=== PATIENT | male | born 1990 | race Two or more races ===

== ENCOUNTER 2017-06-10 13:23 | Emergency (ER) | payer SELFPAY ==
[2017-06-10 13:33] VITALS: BP 127/57
[2017-06-10] MEDS ORDERED: LIDOCAINE 1% INJ-PF (10 MG/ML) 30 ML SDV INJ ONE (13:49)
--- NOTE | 2017-06-10 13:52 | ER Document Report ---
HPI - HPI Pain Level: 4 Notes: Patient is a 27-year-old male with a history of type 2 diabetes who presents to the ED complaining of swelling and pain to the right third digit 1 week. 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 Patient states that he noticed swelling and redness to the base of his fingernail so he stuck it with a needle and was able to get pus out, but since then has had increased swelling and pain to the finger. Patient denies any drug allergies or significant medical history otherwise. Patient admits to smoking but denies IV drug use. No other concerns or complaints at this time. Denies any headache, fever, neck pain, URI , sore throat, chest pain, palpitations, syncope, cough, shortness of breath, wheeze, dyspnea, abdominal pain, nausea/vomiting/diarrhea, urinary retention, dysuria, hematuria, loss of control of bowel or bladder, numbness/tingling, muscle paralysis/weakness, or rash. - ROS Systems Reviewed and Negative: Yes All other systems reviewed and negative Past Medical History - Social History Smoking Status: Current Every Day Smoker Family History: Reviewed & Not Pertinent Vertical Provider Document - CONSTITUTIONAL Agree With Documented VS: Yes Notes: PHYSICAL EXAMINATION: GENERAL: Well-appearing, well-nourished and in no acute distress. A&Ox4. LUNGS: Breath sounds clear to auscultation bilaterally and equal. No wheezes rales or rhonchi. HEART: Regular rate and rhythm without murmurs, rubs, gallops. Musculoskeletal: Rt 3rd digit: + swelling and distal erythema/swelling around the base of the nail. + tenderness. No streaks or active purulence. LROM to passive/active. Strength 5+/5. No anterior flexor tenderness. N/V intact distal. Extremities: No cyanosis, clubbing, or edema b/l. Peripheral pulses 2+. Capillary refill less than 3 seconds. NEUROLOGICAL: Cranial nerves grossly intact. Normal speech, normal gait. Normal sensory, motor exams PSYCH: Normal mood, normal affect. SKIN: see MSK exam. - INFECTION CONTROL TRAVEL OUTSIDE OF THE [place] IN LAST 30 DAYS: No - RESPIRATORY O2 Sat by Pulse Oximetry: 97 Course - Re-evaluation Re-evalutation: 06/10/17 14:25 Patient is an afebrile, well-hydrated, 27-year-old male who presents to the ED with a paronychia with surrounding mild cellulitis of the right third digit. Vitals acceptable. PE is otherwise unremarkable for any neurovascular compromise, obvious tendon/ligament rupture, obvious fracture/dislocation, or retained foreign body. X-ray was unremarkable for any acute pathology. Incision and drainage is performed successfully without any complications. Wound dressing was placed and wound instructions reviewed. Patient to monitor symptoms closely for any worsening signs of infection. Wound culture was obtained. I will send him home with a prescription for Keflex and Bactrim to take as directed. Conservative measures otherwise for symptoms. Recheck with your PCM in 2-3 days. Return to the ED with any worsening/concerning symptoms otherwise as reviewed discharge. Patient is in agreement. - Vital Signs Vital signs: Temp Pulse Resp BP Pulse Ox 72 16 127/57 H 97 06/10/17 13:31 06/10/17 13:31 06/10/17 13:31 06/10/17 13:31 Procedures - Incision and Drainage Right 3rd digit Time completed: 14:20 Type: Simple Anesthetic type: 1% Lidocaine mL's of anesthetic: 8 Blade size: Other - 15 I&D procedure: Shurclens applied, Sterile dressing applied, Other - saline Incision Method: Incision made by scalpel Amount/type of drainage: mod purulent Notes: 06/10/17 14:20 Patient tolerated procedure well without any complications Wound dressing was placed Discharge - Discharge Clinical Impression: Paronychia Condition: Stable Disposition: HOME, SELF-CARE Instructions: Cellulitis ([facility]), Cephalexin ([facility]), Epsom Salt Soaks ([facility]), Paronychia ([facility]), Trimethoprim-Sulfa ([facility]) Additional Instructions: Keep the skin clean Wash with soap and water Tylenol/ibuprofen if needed Triple antibiotic ointment daily Take medication as directed Epsom salt soaks Monitor for any worsening symptoms Recheck with your PCM in 2-3 days Return to the ED with any worsening symptoms and/or development of fever, headache, chest pain, palpitations, syncope, shortness of breath, trouble breathing, abdominal pain, n/v/d, abscess, purulent discharge, red streaks, worsening swelling, or other worsening symptoms that are concerning to you. Prescriptions: Cephalexin Monohydrate [Keflex 500 mg Capsule] 500 mg PO BID #20 capsule Sulfamethoxazole/Trimethoprim [Bactrim Ds Tablet] 1 each PO BID #20 tablet Forms: Elevated Blood Pressure, Smoking Cessation Education Referrals: [facility] [Provider Group] - Follow up as needed
--- NOTE | 2017-06-10 14:24 | RADIOLOGY REPORT (SQ) ---
EXAM DESCRIPTION: HAND RIGHT 3 VIEWS COMPLETED DATE/TIME: 06/10/2017 2:15 pm REASON FOR STUDY: rt middle finger swelling, pain COMPARISON: None. EXAM PARAMETERS: NUMBER OF VIEWS: Three views. TECHNIQUE: AP, lateral and oblique radiographic images acquired of the right hand. LIMITATIONS: None. FINDINGS: MINERALIZATION: Normal. BONES: No acute fracture or dislocation. No worrisome bone lesions. JOINTS: No effusions. SOFT TISSUES: There is soft tissue swelling in the 3rd digit. OTHER: No other significant finding. IMPRESSION: 3rd digit soft tissue swelling with no osseous abnormality. TECHNICAL DOCUMENTATION: JOB ID: [id number] [employer]- All Rights Reserved Reading location - IP/workstation name: [email or web address]
== END 2017-06-10 14:40 | disposition home or self-care (01) ==
LOC: ER 13:23
PROC: 0H9QXZZ Drainage of Finger Nail, External Approach (ICD-10-PCS; principal; 2017-06-10)
DX: L03.011 Cellulitis of right finger (principal); M79.644 Pain in right finger(s); M79.89 Other specified soft tissue disorders; E11.9 Type 2 diabetes mellitus without complications; F17.200 Nicotine dependence, unspecified, uncomplicated
CPT/HCPCS: 99283; 87070; 87205; 87077; 73130; 10060; J3490

== ENCOUNTER 2017-09-27 15:08 | Emergency (ER) | payer SELFPAY ==
[2017-09-27] MEDS ORDERED: LIDOCAINE 1% INJ-PF (10 MG/ML) 30 ML SDV INJ ONE (16:20)
[2017-09-27] MEDS ORDERED: LIDOCAINE 4%/TETRACAINE 0.5%/EPI 0.18% 5 ML TOPICAL SOLN TOP ONE (16:28)
[2017-09-27] MEDS ORDERED: CEPHALEXIN 500 MG CAPSULE PO ONE (17:43)
[2017-09-27] MEDS ORDERED: SULFAMETHOXAZOLE/TRIMETHOPRIM 800-160 MG TABLET PO ONE (17:43)
--- NOTE | 2017-09-27 17:46 | ER Document Report ---
ED General - General Chief Complaint: Abscess Stated Complaint: SKIN PROBLEM Time Seen by Provider: 09/27/17 15:36 Mode of Arrival: Ambulatory Information source: Patient Notes: Patient presents with complaint of possible abscess to left axilla. Patient reports this has been there for 3 days and has not drained. Patient denies history of MRSA, reports history of diabetes and abscesses. Denies fevers or chills. TRAVEL OUTSIDE OF THE [place] IN LAST 30 DAYS: No - Related Data Allergies/Adverse Reactions: No Known Allergies Allergy (Unverified 06/10/17 13:24) Home Medications: Patient takes glucophage and glipizide per patient Past Medical History - General Information source: Patient - Social History Smoking Status: Current Some Day Smoker Chew tobacco use (# tins/day): No Frequency of alcohol use: Occasional Drug Abuse: None Lives with: Family Family History: Reviewed & Not Pertinent Patient has suicidal ideation: No Patient has homicidal ideation: No Endocrine Medical History: Reports: Hx Diabetes Mellitus Type 2 Renal/ Medical History: Denies: Hx Peritoneal Dialysis Review of Systems - Review of Systems Constitutional: No symptoms reported EENT: No symptoms reported Cardiovascular: No symptoms reported Respiratory: No symptoms reported Gastrointestinal: No symptoms reported Genitourinary: No symptoms reported Male Genitourinary: No symptoms reported Musculoskeletal: No symptoms reported Skin: See HPI Hematologic/Lymphatic: No symptoms reported Neurological/Psychological: No symptoms reported Physical Exam - Vital signs Vitals: Temp Pulse Resp BP Pulse Ox 97.4 F 95 16 123/70 96 09/27/17 15:14 09/27/17 15:14 09/27/17 15:14 09/27/17 15:14 09/27/17 15:14 - Notes Notes: GENERAL: Well-appearing, well-nourished and in no acute distress. HEAD: Atraumatic, normocephalic. EYES: Pupils equal round and reactive to light, extraocular movements intact, sclera anicteric, conjunctiva are normal. ENT: TMs normal, nares patent, oropharynx clear without exudates. Moist mucous membranes. NECK: Normal range of motion, supple without lymphadenopathy or JVD. LUNGS: Breath sounds clear to auscultation bilaterally and equal. No wheezes rales or rhonchi. HEART: Regular rate and rhythm without murmurs, rubs or gallops. ABDOMEN: Soft, nontender, normoactive bowel sounds. No guarding, no rebound. No masses appreciated. EXTREMITIES: Normal range of motion, no pitting or edema. No clubbing or cyanosis. NEUROLOGICAL: Cranial nerves II through XII grossly intact. Normal speech, normal gait. PSYCH: Normal mood, normal affect. SKIN: Warm, Dry, normal turgor, no rashes. Three abscesses to left axilla with fluctuance and induration. Course - Re-evaluation Re-evalutation: Abscess examined with ultrasounds prior to incision and drainage. Incision and drainage performed, see procedure notes. Patient discharged in stable condition. - Vital Signs Vital signs: Temp Pulse Resp BP Pulse Ox 97.9 F 78 16 133/57 H 97 09/27/17 17:55 09/27/17 17:55 09/27/17 17:55 09/27/17 17:55 09/27/17 17:55 Procedures - Incision and Drainage left axilla Type: Simple Anesthetic type: 1% Lidocaine Blade size: 11 I&D procedure: Betadine prep applied, Shurclens applied, Iodoform packing placed , Other Incision Method: Incision made by scalpel Discharge - Discharge Clinical Impression: Abscess Condition: Stable Disposition: HOME, SELF-CARE Additional Instructions: ABSCESS: You have an abscess (boil). This a pus-forming infection, usually due to staph. Some boils may be left to drain on their own, but most require lancing. From the time the tender lump first appears, it may be three or four days before the abscess is ready to leidy. Local heat and rest help at this stage of treatment. An antibiotic may prevent spread of the infection. Once the abscess is opened, packing may be placed into it. This is done so pus is not sealed inside by premature closure of the cavity. The packing will be removed at your follow-up visit or you may be advised to remove it yourself at home. Sometimes this packing must be replaced a few times during healing. The wound will heal with surprisingly little scar. Depending on the size and location of an abscess, healing can take one to four weeks. You may shower and wash the area around the incision site two or three times a day. Antibiotics may be prescribed, but are usually not necessary after an abscess has been drained. If you develop fever, chills, worsening pain, or increasing swelling in the area, call the doctor or return immediately. POST INCISION AND DRAINAGE: You have had an incision made to allow drainage of an abscess. The incision must remain open so that pus and debris can drain from the wound. If the abscess cavity is large, packing is placed. This keeps the tissues from collapsing and trapping pus inside, while the body shrinks the cavity. The packing may need to be replaced every day or two. The physician will instruct you on the packing. Keep a bulky dressing over the area. Replace it if it becomes saturated with blood or pus. Do not disturb the packing (if present). You may shower and cleanse the area with gentle soap and warm water two or three times a day. Local warmth may be soothing, and may promote faster healing. Return if you develop high fever or chills, or if you note spreading redness, increasing swelling, or increasing tenderness. MRSA CELLULITIS: You have an infection of your skin and underlying soft tissues called cellulitis. This is due to bacteria, which can enter through any break in the skin, or even through an irritated hair follicle. Untreated, cellulitis will usually worsen and may form an abscess which requires draining. Although many bacterial organisms can cause cellulitis and abscess formations, the most likely bacteria is Methicillin-Resistant Staph Aureus, or MRSA for short. Antibiotics are required. Usually, warm packs or warm soaks, and elevation of the infected area are recommended. You should start getting better within 24 to 36 hours. Most infections respond quickly to the right medication. Follow-up care is important, however, to check for abscess (boil) formation, unsuspected foreign body, or resistant infection. If you develop fever, chills, or if the area of infection is becoming rapidly more swollen or painful, call the doctor at once. CEPHALEXIN: The antibiotic you've been prescribed is a member of the cephalosporin class. This type of antibiotic covers a wide variety of infections, including those of the skin, lungs, and urinary tract. It's useful for staph infections. This antibiotic is slightly similar to the penicillin family. In rare cases , a person who is allergic to penicillin will also be allergic to this medication. If you have had a severe allergic reaction to penicillin, and have not taken this antibiotic since that time, notify your doctor. Antibiotics which cover many germs ("broad spectrum" antibiotics) are more likely to cause diarrhea or "yeast" infections. Women prone to vaginal yeast problems may suffer an attack after taking this antibiotic. In infants, oral thrush (white spots "stuck" on the cheek) or yeast diaper rash may result. See your doctor if these problems occur. Call at once if you develop itching, hives , shortness of breath, or lightheadedness. TRIMETHOPRIM-SULFA: You have been given a prescription for trimethoprim-sulfa (TMS, Septra, Bactrim). This is a combination antibiotic of the sulfa class, often used for urinary tract infections, middle ear infections, bronchitis, shigella intestinal infection, and Pneumocystis pneumonia. TMS is usually well-tolerated. Occasional side effects include nausea and decreased appetite. Septra is not recommended for infants less than two months of age. Do not take this medication if you have experienced severe side effects or allergy to sulfa medicine. You should stop this medicine at once and contact your physician if you develop any rash, joint pain, shortness of breath, bruising, or jaundice ( yellow color in the skin), or if you develop any other new or unusual symptoms. FOLLOW-UP CARE: Most simple abscesses will not require a follow up visit. If you had packing placed in the abscess, remove it as instructed by the physician. If you have been referred to a physician for follow-up care, call the physicians office for an appointment as you were instructed or within the next two days. If you experience worsening or a significant change in your symptoms, return to the Emergency Department at any time for re-evaluation. Please read remove the packing within 24-48 hours. You may remove this on your own or you may return here. The packing may very likely fall out on its own prior to this. Prescriptions: Cephalexin Monohydrate [Keflex 500 mg Capsule] 500 mg PO Q6H 5 Days #20 capsule Sulfamethoxazole/Trimethoprim [Bactrim Ds Tablet] 2 tab PO BID #20 tablet
[2017-09-27 17:56] VITALS: BP 133/57
== END 2017-09-27 17:56 | disposition home or self-care (01) ==
LOC: ER 15:08
PROC: 0H9CXZZ Drainage of Left Upper Arm Skin, External Approach (ICD-10-PCS; principal; 2017-09-27)
DX: L02.412 Cutaneous abscess of left axilla (principal); E11.9 Type 2 diabetes mellitus without complications; F17.200 Nicotine dependence, unspecified, uncomplicated
CPT/HCPCS: 99283; 10060; A6266; J3490 ×2

== ENCOUNTER 2017-11-22 16:09 | Emergency (ER) | payer SELFPAY ==
--- NOTE | 2017-11-22 16:32 | ER Document Report ---
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 Does not believe there is a foreign body in there. He has a history of abscesses under his left arm recently. No fever or chills. Associated Symptoms: None Exacerbated by: Movement Relieved by: Denies - ROS ROS below otherwise negative: Yes Systems Reviewed and Negative: Yes All other systems reviewed and negative Past Medical History - General Information source: Patient - Social History Smoking Status: Unknown if Ever Smoked Lives with: Family Family History: Reviewed & Not Pertinent Endocrine Medical History: Reports: Hx Diabetes Mellitus Type 2 Renal/ Medical History: Denies: Hx Peritoneal Dialysis Surgical Hx: Negative Vertical Provider Document - CONSTITUTIONAL Agree With Documented VS: Yes Exam Limitations: No Limitations - INFECTION CONTROL TRAVEL OUTSIDE OF THE [place] IN LAST 30 DAYS: No - MUSCULOSKELETAL/EXTREMETIES Musculoskeletal/Extremeties: MAEW, FROM, Tender - 9mm red tender nodule mid thenar aspect of the right palm - NEURO Level of Consciousness: Awake, Alert Motor/Sensory: No Motor Deficit, No Sensory Deficit Course - Re-evaluation Re-evalutation: 11/22/17 16:48 Bedside ultrasound shows some fluid collection the plain film x-ray does not show a foreign body.. Patient states this started like an insect bite and now it has gotten larger. 11/22/17 17:45 There is no pus when a anesthetized the area and inserted an 18-gauge needle twice into the area of suspicion only blood. I used the needle instead of incision because I was suspicious of whether it was an abscess or not. I told the patient that he needs to use warm soaks on it tomorrow and I am going to start antibiotics and since he is a type II diabetic. I will plan on on him rechecking in 48 hours sooner if worse give him a no work note. xray was negative - Vital Signs Vital signs: Temp Pulse Resp BP Pulse Ox 98.4 F 75 16 125/75 97 11/22/17 16:13 11/22/17 16:13 11/22/17 16:13 11/22/17 16:13 11/22/17 16:13 Procedures - Incision and Drainage Right Hand Time completed: 17:43 Type: Simple Anesthetic type: 1% Lidocaine mL's of anesthetic: 2 I&D procedure: Betadine prep applied, Sterile dressing applied - gauze and coban Incision Method: Incision made with needle Amount/type of drainage: blood only, no pus with 1u gauge needle twice. Hands front picture: 1 - firm red nodule 9mm Discharge - Discharge Clinical Impression: Nodule of finger of right hand Condition: Good Disposition: HOME, SELF-CARE Instructions: Cephalexin ([facility]), Trimethoprim-Sulfa ([facility]), Ibuprofen (General) ( [facility]) Additional Instructions: Warm compress Antibiotics in case this is an infection Recheck your hand in 48 hours in the emergency department sooner if worse motrin for pain and inflammation Prescriptions: Ibuprofen [Motrin 800 mg Tablet] 800 mg PO Q8HP PRN #30 tablet PRN Reason: Cephalexin Monohydrate [Keflex 500 mg Capsule] 500 mg PO QID #28 capsule Sulfamethoxazole/Trimethoprim [Sulfamethoxazole-Tmp Ds Tablet] 1 each PO BID # 14 tablet Forms: Return to Work
--- NOTE | 2017-11-22 17:21 | RADIOLOGY REPORT (SQ) ---
EXAM DESCRIPTION: HAND RIGHT 3 VIEWS COMPLETED DATE/TIME: 11/22/2017 5:01 pm REASON FOR STUDY: possible abscess COMPARISON: 06/10/2017. EXAM PARAMETERS: NUMBER OF VIEWS: Three views. TECHNIQUE: AP, lateral and oblique radiographic images acquired of the right hand. LIMITATIONS: None. FINDINGS: MINERALIZATION: Normal. BONES: No acute fracture or dislocation. No worrisome bone lesions. JOINTS: No effusions. SOFT TISSUES: No soft tissue swelling. No foreign body. OTHER: No other significant finding. IMPRESSION: NO SIGNIFICANT RADIOGRAPHIC ABNORMALITY. TECHNICAL DOCUMENTATION: JOB ID: [id number] [employer]- All Rights Reserved Reading location - IP/workstation name: [email or web address]
[2017-11-22] MEDS ORDERED: ACETAMINOPHEN 325 MG TABLET PO ONE (17:45)
[2017-11-22] MEDS ORDERED: IBUPROFEN 800 MG TABLET PO ONE (17:45)
[2017-11-22 17:53] VITALS: BP 135/83
== END 2017-11-22 17:57 | disposition home or self-care (01) ==
LOC: ER 16:09
DX: R22.31 Localized swelling, mass and lump, right upper limb (principal); E11.9 Type 2 diabetes mellitus without complications; Z87.2 Personal history of diseases of the skin and subcutaneous tissue
CPT/HCPCS: 99283

== ENCOUNTER 2018-11-05 21:13 | Emergency (ER) | payer SELFPAY ==
--- NOTE | 2018-11-06 | ER Document Report ---
Addendum entered and electronically signed by SOBEIDA ALANIZ PA-C 11/06/18 00:41: Discharge - Discharge Clinical Impression: Abscess Condition: Good Disposition: HOME, SELF-CARE Instructions: Abscess ([facility]), Post Incision and Drainage Additional Instructions: You were seen for an abscess that required drainage. Please clean this area with soap and water twice daily and apply a topical antibiotic. Dress the area after each cleaning. Please return if you develop fever, vomiting, the pain at the site worsens, you notice spreading redness from the area, or you have any other symptoms that are concerning to you. Forms: Return to Work Original Note: ED Skin Rash/Insect Bite/Abscs - General Chief Complaint: Abscess Stated Complaint: CYST ON BACK Time Seen by Provider: 11/05/18 23:46 Notes: Overall healthy 28-year-old male presents emergency department with chief complaint of a cyst on his back. Patient does have a history of abscesses that required incision and drainage in the past. He said that this started about 1 week ago and has grown and now is under a lot of pressure and is in acute pain. He denies any fevers or chills, any acute shortness of breath or chest pain, denies any neuro deficits, denies any limb paresthesias, denies IV drug use. No other complaints TRAVEL OUTSIDE OF THE [place] IN LAST 30 DAYS: No - Related Data Allergies/Adverse Reactions: No Known Allergies Allergy (Unverified 06/10/17 13:24) Past Medical History - Social History Smoking Status: Unknown if Ever Smoked Family History: Reviewed & Not Pertinent Endocrine Medical History: Reports: Hx Diabetes Mellitus Type 2 Renal/ Medical History: Denies: Hx Peritoneal Dialysis Physical Exam - Vital signs Vitals: Temp Pulse Resp BP Pulse Ox 98.9 F 84 18 120/73 94 11/05/18 21:38 11/05/18 21:38 11/05/18 21:38 11/05/18 21:38 11/05/18 21:38 - Notes Notes: PHYSICAL EXAMINATION: Reviewed vital signs and charting by RN GENERAL: Alert, interacts well. No acute distress. HEAD: Normocephalic, atraumatic. EYES: Pupils equal and round. Extraocular movements intact. ENT: Oral mucosa moist, tongue midline. NECK: Full range of motion. Trachea midline. EXTREMITIES: Moves all 4 extremities spontaneously. No edema, No cyanosis. PSYCH: Normal affect, normal mood. SKIN: Warm, dry, normal turgor. Abscess in the lower thoracic region on the right side not actively oozing, ultrasound placed over it and there was a fluid- filled pocket amenable to incision and drainage. Course - Re-evaluation Re-evalutation: 11/06/18 00:37 Incision and drainage performed after anesthetizing patient with lidocaine 1% without epinephrine. Patient tolerated procedure well. No need for antibiotic's at this time as this is just a simple abscess. - Vital Signs Vital signs: Temp Pulse Resp BP Pulse Ox 98.9 F 84 18 120/73 94 11/05/18 21:38 11/05/18 21:38 11/05/18 21:38 11/05/18 21:38 11/05/18 21:38 Procedures - Incision and Drainage Right Back Type: Simple Anesthetic type: 1% Lidocaine Blade size: 11 I&D procedure: Shurclens applied Incision Method: Incision made by scalpel Discharge - Discharge Clinical Impression: Abscess Condition: Good Disposition: HOME, SELF-CARE Instructions: Abscess ([facility]), Post Incision and Drainage Additional Instructions: You were seen for an abscess that required drainage. Please clean this area with soap and water twice daily and apply a topical antibiotic. Dress the area after each cleaning. Please return if you develop fever, vomiting, the pain at the site worsens, you notice spreading redness from the area, or you have any other symptoms that are concerning to you.
[2018-11-06] MEDS ORDERED: HYDROCODONE/ACETAMINOPHEN 5-325 MG (6 TAB/ER DISP) PO PRN (00:39)
[2018-11-06 00:51] VITALS: BP 119/71
== END 2018-11-06 01:27 | disposition home or self-care (01) ==
LOC: ER 21:13
DX: L02.212 Cutaneous abscess of back [any part, except buttock and flank] (principal); E11.9 Type 2 diabetes mellitus without complications
CPT/HCPCS: 99282

== ENCOUNTER 2019-01-22 17:16 | Emergency (ER) | payer SELFPAY ==
[2019-01-22] MEDS ORDERED: NORMAL SALINE 1000 ML 1,000 ML IV ONE ×2 (17:42→19:25)
--- NOTE | 2019-01-22 17:44 | ER Document Report ---
ED Medical Screen (RME) - General Chief Complaint: Abscess Stated Complaint: POSSIBLE ABSCESS Time Seen by Provider: 01/22/19 17:34 Notes: Patient is a 29-year-old diabetic who has been off his medications who presents to the emergency department with a possible abscess to his left lower back. Patient had noticed that he had a bump to the area about a week ago. Patient admits to having some cold chills. Patient states that he has not established a primary care provider here in [place], therefore he has been off his medications. Exam: Abscess noted to left lower back. Accu-Chek reading high. Patient will be given IV fluids and basic labs will be drawn. I have greeted and performed a rapid initial assessment of this patient. A comprehensive ED assessment and evaluation of the patient, analysis of test results and completion of medical decision making process will be conducted by an additional ED providers. TRAVEL OUTSIDE OF THE [place] IN LAST 30 DAYS: No - Related Data Allergies/Adverse Reactions: No Known Allergies Allergy (Unverified 06/10/17 13:24) Past Medical History - Social History Chew tobacco use (# tins/day): No Frequency of alcohol use: Social Drug Abuse: None Endocrine Medical History: Reports: Hx Diabetes Mellitus Type 2 Renal/ Medical History: Denies: Hx Peritoneal Dialysis Physical Exam - Vital signs Vitals: Temp Pulse Resp BP Pulse Ox 98.3 F 86 18 134/73 H 98 01/22/19 17:23 01/22/19 17:23 01/22/19 17:23 01/22/19 17:23 01/22/19 17:23 Course - Vital Signs Vital signs: Temp Pulse Resp BP Pulse Ox 98.3 F 86 18 134/73 H 98 01/22/19 17:23 01/22/19 17:23 01/22/19 17:23 01/22/19 17:23 01/22/19 17:23
[2019-01-22 18:19] LABS: APPEARANCE,URINE CLEAR; BILIRUBIN,URINE NEGATIVE (NEGATIVE); COLOR,URINE STRAW; KETONES,URINE NEGATIVE (NEGATIVE); LEUKOCYTE ESTERASE,URINE NEGATIVE (NEGATIVE); NITRITE,URINE NEGATIVE (NEGATIVE); PROTEIN,URINE NEGATIVE (NEGATIVE); URINE SPECIFIC GRAVITY 1.005; UROBILINOGEN,URINE NEGATIVE mg/dL (<2.0)
[2019-01-22 18:21] LABS: GLUCOSE, URINE >=1000 mg/dL (NEGATIVE)
[2019-01-22 18:22] LABS: ABSOLUTE EOSINOPHILS # (AUTO) 0.1 10^3/uL (0.0-0.6); ABSOLUTE LYMPHOCYTES (AUTO) 1.3 10^3/uL (0.5-4.7); ABSOLUTE MONOCYTES (AUTO) 0.5 10^3/uL (0.1-1.4); TOTAL CELLS COUNTED % (AUTO) 100 %
[2019-01-22 18:26] LABS: BASOPHILS % (AUTO) 1.2 % (0-2); EOSINOPHILS % (AUTO) 3.1 % (0-6); HEMATOCRIT 44.8 % (37.9-51.0); HEMOGLOBIN 15.1 g/dL (13.5-17.0); LYMPHOCYTES % (AUTO) 32.2 % (13-45); MEAN CORPUSCULAR HEMOGLOBIN 32.7 pg (27.0-33.4); MEAN CORPUSCULAR HGB CONC 33.7 g/dL (32.0-36.0); MEAN CORPUSCULAR VOLUME 97 fl (80-97); MONOCYTES % (AUTO) 13.5 % (3-13); PLATELET COUNT 256 10^3/uL (150-450); RED BLOOD COUNT 4.61 10^6/uL (4.35-5.55); RED CELL DISTRIBUTION WIDTH 12.8 % (11.5-14.0)
[2019-01-22 18:38] LABS: VENOUS BLOOD BASE EXCESS 2.9 mmol/L; VENOUS BLOOD HCO3 29.8 mmol/L (20-32); VENOUS BLOOD PCO2 53.9 mmHg (35-63); VENOUS BLOOD PH 7.36 (7.30-7.42)
[2019-01-22 18:52] LABS: ALBUMIN 4.2 g/dL (3.5-5.0); ALKALINE PHOSPHATASE 115 U/L (38-126); ANION GAP 14 (5-19); ASPARTATE AMINO TRANSFERASE 17 U/L (17-59); BILIRUBIN,DIRECT 0.2 mg/dL (0.0-0.4); BILIRUBIN,TOTAL 1.4 mg/dL (0.2-1.3); BLOOD UREA NITROGEN 10 mg/dL (7-20); CALCIUM 9.2 mg/dL (8.4-10.2); CARBON DIOXIDE 25 mmol/L (22-30); CHLORIDE 85 mmol/L (98-107); POTASSIUM 4.8 mmol/L (3.6-5.0); TOTAL PROTEIN 7.1 g/dL (6.3-8.2)
[2019-01-22 19:01] LABS: GLUCOSE 901 mg/dL (75-110)
[2019-01-22] MEDS ORDERED: NORMAL SALINE 100 ML with INSULIN REGULAR, HUMAN 100 UNIT IV PRN ×2 (20:36)
[2019-01-22] MEDS ORDERED: DIPH/PERTUSS(ACELL)/TETANUS VAC/PF 0.5 ML SYR (>=10YO) IM ONE (20:54)
[2019-01-22] MEDS ORDERED: INSULIN REG, HUMAN 100 UNIT/ML 3 ML VIAL (PYX) SUBCUT ONE (20:58)
[2019-01-22] MEDS ORDERED: SULFAMETHOXAZOLE/TRIMETHOPRIM 800-160 MG TABLET PO ONE (20:58)
[2019-01-22] MEDS ORDERED: LIDOCAINE 1% INJ-PF (10 MG/ML) 30 ML SDV INJ ONE (21:05)
[2019-01-22] MEDS ORDERED: HYDROCODONE/ACETAMINOPHEN 5-325 MG TABLET PO ONE (22:40)
--- NOTE | 2019-01-23 00:08 | ER Document Report ---
ED General - General Chief Complaint: Abscess Stated Complaint: POSSIBLE ABSCESS Time Seen by Provider: 01/22/19 17:34 TRAVEL OUTSIDE OF THE [place] IN LAST 30 DAYS: No - Related Data Allergies/Adverse Reactions: No Known Allergies Allergy (Unverified 06/10/17 13:24) Past Medical History - Social History Smoking Status: Current Every Day Smoker Chew tobacco use (# tins/day): No Frequency of alcohol use: Social Drug Abuse: None Family History: Reviewed & Not Pertinent Patient has suicidal ideation: No Patient has homicidal ideation: No Endocrine Medical History: Reports: Hx Diabetes Mellitus Type 2 Renal/ Medical History: Denies: Hx Peritoneal Dialysis Physical Exam - Vital signs Vitals: Temp Pulse Resp BP Pulse Ox 98.3 F 86 18 134/73 H 98 01/22/19 17:23 01/22/19 17:23 01/22/19 17:23 01/22/19 17:23 01/22/19 17:23 - Notes Notes: Patient presents with 2 complaints #1 is a abscess on his left flank is been on for about a week. Denies any trauma or bite wounds. He has not been scratching it is been no drainage. He has had several of these in the past had to be drained. Is also complaining of a rash in his perineal area about a month. It is scratchy in nature. No contact history obtainable. Any fevers but he has been thirsty and has had frequent urination. Denies any nausea vomiting abdominal pain chest pain or shortness of breath History significant for diabetes he was on metformin is been off for several months social history was listed on triage note. Allergies are negative. Immunizations are unknown Review of systems all systems were reviewed and acutely negative except as in HPI DM PHYSICAL EXAMINATION: Signs noted he is in no acute distress triage note revi ewed GENERAL: Well-appearing, well-nourished and in no acute distress. HEAD: Atraumatic, normocephalic. EYES: Pupils equal round and reactive to light, extraocular movements intact, sclera anicteric, conjunctiva are normal. ENT: nares patent, oropharynx clear without exudates. Moist mucous membranes. NECK: Normal range of motion, supple without lymphadenopathy LUNGS: Breath sounds clear to auscultation bilaterally and equal. No wheezes rales or rhonchi. HEART: Regular rate and rhythm without murmurs ABDOMEN: Soft, nontender, normoactive bowel sounds. Back is nontender small fluctuant area on the left flank no real surrounding redness EXTREMITIES: Normal range of motion, no pitting or edema. No cyanosis. NEUROLOGICAL: No focal neurological deficits. Moves all extremities spontaneously and on command. PSYCH: Normal mood, normal affect. SKIN: Warm, Dry, normal turgor, no rashes or lesions noted. Course - Re-evaluation Re-evalutation: 01/23/19 00:06 ED patient is remained stable he is given a tetanus shot as well as Bactrim. He was given 2 L of normal saline sugar to around 450 01/23/19 00:08 Medical decision making patient with a history of diabetes presents with an abscess as well as markedly elevated glucose. No anion gap his glucose has improved however I felt the patient would need admission based on the fact that sugar was 900. I had a lengthy discussion with Dr. Cohn the hospitalist laboratory studies fact that his glucose was 900 however he felt that since the sugar has come down that he had no anion gap to be discharged home he did recommend another liter of fluid even though the patient had already received 2 L plan at this point we will discharge the patient home. He will be placed on metformin and Bactrim call for the pain. Also be treated with Diflucan for his rash. Emphasized need for him to get his medications filled. One is a side effect of medication we will bring him back here 2 days to recheck his sugar and remove the packing develops fevers greater than 101 or persistent vomiting. Patient expresses understanding - Vital Signs Vital signs: Temp Pulse Resp BP Pulse Ox 98.3 F 86 18 134/73 H 98 01/22/19 17:23 01/22/19 17:23 01/22/19 17:23 01/22/19 17:23 01/22/19 17:23 - Laboratory Result Diagrams: 01/22/19 17:52 01/22/19 17:52 Laboratory results interpreted by me: 01/22/19 01/22/19 01/22/19 17:52 17:52 17:52 [place] % (Auto) 13.5 H Sodium 123.8 L Chloride 85 L Creatinine 0.48 L Glucose 901 H* POC Glucose Total Bilirubin 1.4 H Urine Glucose (UA) >=1000 H 01/22/19 01/22/19 20:51 23:14 [place] % (Auto) Sodium Chloride Creatinine Glucose POC Glucose 540 H* 408 H* Total Bilirubin Urine Glucose (UA) Procedures - Incision and Drainage Left Back Type: Complex Anesthetic type: 1% Lidocaine Blade size: 11 Needle Size: Other I&D procedure: Betadine prep applied Incision Method: Incision made by scalpel Notes: 01/23/19 00:07 5 cc 01/23/19 00:07 5 cc of purulent wound. Loculations were broken up. Abated with normal saline. Xeroform gauze. Patient tolerated procedure well. Sent wound culture Critical Care Note - Critical Care Note Total time excluding time spent on procedures (mins): 35 Discharge - Discharge Clinical Impression: Abscess, Candidiasis Disposition: HOME, SELF-CARE Additional Instructions: Return to the ED in 2 days for recheck Please review the discharge instructions Is very important that you get the medications filled tomorrow Return to the ED in 2 days for recheck The pain medications may cause drowsiness do not take Tylenol with this Avoid scratching the area of rash. Try to keep the area of rash as dry as possible Take 1 Benadryl 4 times a day to help with the itching Follow-up in the clinic in 1 week to recheck your sugar Prescriptions: Sulfamethoxazole/Trimethoprim [Bactrim Ds Tablet] 1 tab PO BID #10 tablet Fluconazole [Diflucan] 150 mg PO DAILY #3 tablet Metformin HCl [Glucophage 500 mg Tablet] 1,000 mg PO BID #60 tablet Hydrocodone/Acetaminophen [[place]vin 5-325 mg Tablet] 1 tab PO Q6 #12 tablet
[2019-01-23 00:34] VITALS: BP 113/64
== END 2019-01-23 00:32 | disposition home or self-care (01) ==
LOC: ER 17:16
DX: L02.211 Cutaneous abscess of abdominal wall (principal); B37.9 Candidiasis, unspecified; R21 Rash and other nonspecific skin eruption; E11.65 Type 2 diabetes mellitus with hyperglycemia; F17.200 Nicotine dependence, unspecified, uncomplicated
CPT/HCPCS: 99285; 96360; 96361; 90471; 36415; 87070; 87205; 82962; 85025; 87075; 87077; 80053; 81001; 82803; 90715; 10060; A6266; J3490; J1815; J7030; 87186

== ENCOUNTER 2019-01-24 17:22 | Emergency (ER) | payer SELFPAY ==
--- NOTE | 2019-01-24 18:03 | ER Document Report ---
ED Medical Screen (RME) - General Chief Complaint: Wound Recheck Stated Complaint: WOUND CHECK Time Seen by Provider: 01/24/19 18:00 Mode of Arrival: Ambulatory Information source: Patient Notes: 29-year-old male presents emergency department with request for wound recheck reports he had an I&D 2 days ago and that is pack. Also reports that they told him to have his sugar rechecked because it was over thousand last time he was here. Patient reports he feels better but is on pain medications. Reports he is taking his antibiotics as prescribed. Denies fever I have greeted and performed a rapid initial assessment of this patient. A comprehensive ED assessment and evaluation of the patient, analysis of test results and completion of the medical decision making process will be conducted by additional ED providers. Dictation of this chart was performed using voice recognition software; therefore, there may be some unintended grammatical errors. TRAVEL OUTSIDE OF THE [place] IN LAST 30 DAYS: No - Related Data Allergies/Adverse Reactions: No Known Allergies Allergy (Unverified 06/10/17 13:24) Past Medical History Endocrine Medical History: Reports: Hx Diabetes Mellitus Type 2 Renal/ Medical History: Denies: Hx Peritoneal Dialysis Physical Exam - Vital signs Vitals: Temp Pulse Resp BP Pulse Ox 98.4 F 84 16 120/74 99 01/24/19 17:47 01/24/19 17:47 01/24/19 17:47 01/24/19 17:47 01/24/19 17:47 Course - Vital Signs Vital signs: Temp Pulse Resp BP Pulse Ox 98.4 F 84 16 120/74 99 01/24/19 17:47 01/24/19 17:47 01/24/19 17:47 01/24/19 17:47 01/24/19 17:47
[2019-01-24] MEDS: NORMAL SALINE 1000 ML 1,000 ML IV PRN ×2 (19:38→19:41)
--- NOTE | 2019-01-24 19:53 | ER Document Report ---
ED General - General Mode of Arrival: Ambulatory Information source: Patient TRAVEL OUTSIDE OF THE [place] IN LAST 30 DAYS: No - HPI Onset: Other - See HPI Onset/Duration: Better - States she has no pain Quality of pain: No pain Severity: None Pain Level: Denies Associated symptoms: Other - Recheck Accu-Chek and recheck wound Exacerbated by: Denies Relieved by: Denies Similar symptoms previously: Yes Recently seen / treated by doctor: Yes <ASHLEY MEDEL - Last Filed: 01/24/19 21:48> <CAROLINA NIXON IV - Last Filed: 01/24/19 23:07> - General Chief Complaint: Wound Recheck Stated Complaint: WOUND CHECK Time Seen by Provider: 01/24/19 18:00 Notes: 29-year-old male presented to ED for request for wound recheck. He states he had a INR done 2 days ago and it was packed and needed the packing removed. He was also checked for his blood sugar and it was up to 900 and his last visit 2 days ago they gave him fluids since he home started him on metformin. He states he took 2 pills a day twice a day and he has had 2 pills this morning and he needs 2 more tonight. He states nobody has checked his Accu-Chek before I saw him. I saw him about 1830. I did check his Accu-Chek it was high so we sent to chemistry. His chemistry came back 6 7 so he got started on 2 L of normal saline. Will check Accu-Chek after the saline. (ASHLEY MEDEL) - Related Data Allergies/Adverse Reactions: No Known Allergies Allergy (Unverified 06/10/17 13:24) Past Medical History - General Information source: Patient - Social History Smoking Status: Never Smoker Chew tobacco use (# tins/day): No Frequency of alcohol use: None Drug Abuse: None Lives with: Family Family History: Reviewed & Not Pertinent Patient has suicidal ideation: No Patient has homicidal ideation: No - Past Medical History Cardiac Medical History: Reports: None Pulmonary Medical History: Reports: None EENT Medical History: Reports: None Neurological Medical History: Reports: None Endocrine Medical History: Reports: Hx Diabetes Mellitus Type 2 Renal/ Medical History: Reports: None Malignancy Medical History: Reports None GI Medical History: Reports: None Musculoskeletal Medical History: Reports None Skin Medical History: Reports None Psychiatric Medical History: Reports: None Traumatic Medical History: Reports: None Infectious Medical History: Reports: None Surgical Hx: Negative Past Surgical History: Reports: None - Immunizations Immunizations up to date: Yes <ASHLEY MEDEL - Last Filed: 01/24/19 21:48> Review of Systems - Review of Systems Constitutional: No symptoms reported EENT: No symptoms reported Cardiovascular: No symptoms reported Respiratory: No symptoms reported Gastrointestinal: No symptoms reported Genitourinary: No symptoms reported Male Genitourinary: No symptoms reported Musculoskeletal: No symptoms reported Skin: Other - Wound recheck Hematologic/Lymphatic: No symptoms reported Neurological/Psychological: No symptoms reported -: Yes All other systems reviewed and negative <ASHLEY MEDEL - Last Filed: 01/24/19 21:48> Physical Exam - Vital signs Interpretation: Normal - General General appearance: Appears well, Alert - HEENT Head: Normocephalic, Atraumatic Eyes: Normal Pupils: PERRL - Respiratory Respiratory status: No respiratory distress Chest status: Nontender Breath sounds: Normal Chest palpation: Normal - Cardiovascular Rhythm: Regular Heart sounds: Normal auscultation Murmur: No - Abdominal Inspection: Normal Distension: No distension Bowel sounds: Normal Tenderness: Nontender Organomegaly: No organomegaly - Back Back: Normal, Nontender - Extremities General upper extremity: Normal inspection, Nontender, Normal color, Normal ROM, Normal temperature General lower extremity: Normal inspection, Nontender, Normal color, Normal ROM, Normal temperature, Normal weight bearing. No: Aylin's sign - Neurological Neuro grossly intact: Yes Cognition: Normal Orientation: AAOx4 Gage Coma Scale Eye Opening: Spontaneous Gage Coma Scale Verbal: Oriented [place] Coma Scale Motor: Obeys Commands Sak[place] Coma Scale Total: 15 Speech: Normal Motor strength normal: LUE, RUE, LLE, RLE Sensory: Normal - Psychological Associated symptoms: Normal affect, Normal mood - Skin Skin Temperature: Warm Skin Moisture: Dry Skin Color: Normal Skin irregularity: Abscess - Recheck need to remove packing then irrigated with saline and redressed Location of irregularity: Other - Left upper buttocks Irregularity with: Tenderness <ASHLEY MEDEL - Last Filed: 01/24/19 21:48> - Vital signs Vitals: Temp Pulse Resp BP Pulse Ox 98.4 F 84 16 120/74 99 01/24/19 17:47 01/24/19 17:47 01/24/19 17:47 01/24/19 17:47 01/24/19 17:47 Course - Laboratory Result Diagrams: 01/24/19 19:28 <ASHLEY MEDEL - Last Filed: 01/24/19 21:48> - Laboratory Result Diagrams: 01/24/19 19:28 <CAROLINA NIXON IV - Last Filed: 01/24/19 23:07> - Re-evaluation Re-evalutation: 01/24/19 20:49 Accu-Chek was high so chemistry was done sugar was 667, 2 L of normal saline have been given Accu-Chek is now over 400. Will consult MD about disposition. 01/24/19 21:[address] Woods he recommended giving patient another liter of fluids and 5 units of regular insulin cutaneous. He states the sugar will need to be rechecked and needs to be under 300. 01/24/19 21:48 Accu-Chek is now [address] Woods he stated that the sugar will continue to go ahead down to go ahead and let him go home but to reiterate the diet. I have gone into spoken with the patient and he is ready to go home. We will give him his metformin dose before discharge. (ASHLEY MEDEL) - Vital Signs Vital signs: Temp Pulse Resp BP Pulse Ox 98.4 F 84 16 120/74 99 01/24/19 17:47 01/24/19 17:47 01/24/19 17:47 01/24/19 17:47 01/24/19 17:47 - Laboratory Laboratory results interpreted by me: 01/24/19 01/24/19 01/24/19 19:28 20:29 21:45 Sodium 132.3 L Chloride 91 L Glucose 667 H* POC Glucose 447 H* 384 H Total Bilirubin 1.4 H AST 16 L Discharge <ASHLEY MEDEL - Last Filed: 01/24/19 21:48> <CAROLINA NIXON IV - Last Filed: 01/24/19 23:07> - Discharge Clinical Impression: Encounter for wound re-check Diabetes type 2, uncontrolled Qualifiers: Glycemic state: with hyperglycemia Qualified Code(s): E11.65 - Type 2 diabetes mellitus with hyperglycemia Condition: Stable Disposition: HOME, SELF-CARE Instructions: Family Physicians / Practices Additional Instructions: Diabetes You have an abnormally high blood sugar, suspicious for diabetes. Not all high blood sugar requires long-term treatment. High blood sugar can be due to medications, , or the stress of illness. (These cases are "borderline diabetes.") If the doctor feels your high blood sugar might get better with time, you may not require treatment now. You will be scheduled for further evaluation. It's very important that you follow through. Uncontrolled high blood sugar leads to early heart disease, strokes, nerve damage, eye damage, and kidney damage. All diabetics should follow a diet designed to control the blood sugar. Overweight diabetics should exercise regularly and lose weight. If this is not sufficient to control the blood sugar, pills or insulin shots are necessary. Younger people who develop diabetes almost always require insulin daily. Home testing of blood sugars or urine sugar is required. Diabetic teaching is available to help you figure insulin doses and monitor the blood sugar. Call the physician if there is faintness, excess sleepiness, or very rapid breathing. If hypoglycemia (LOW blood sugar) develops, symptoms are shakiness, weakness, sweating, and confusion. In this case, you should eat or drink something with sugar at once. You were here for recheck of your abscess. I have removed the packing and redressed the wound. You need to recheck this abscess and redress that 3 times a day. Please clean with some fresh soap and water each time and rinse well with clear water. Your sugar was high today. You have been treated with 5 units of insulin as well as 3 L of fluids to bring your sugar down it was over 600 today. Please follow the diabetic diet as you were discussed before. Decrease the sugars sugar drinks starches that you eat these all make your sugar go high. You need to follow-up with a dietitian and a retail service specialist to get your diabetes under control. FOLLOW-UP CARE: If you have been referred to a physician for follow-up care, call the [facility] office for an appointment as you were instructed or within the next two days. If you experience worsening or a significant change in your symptoms, notify the physician immediately or return to the Emergency Department at any time for re-evaluation.
[2019-01-24 20:00] LABS: ALBUMIN 4.4 g/dL (3.5-5.0); ALKALINE PHOSPHATASE 117 U/L (38-126); ANION GAP 13 (5-19); ASPARTATE AMINO TRANSFERASE 16 U/L (17-59); BILIRUBIN,DIRECT 0.2 mg/dL (0.0-0.4); BILIRUBIN,TOTAL 1.4 mg/dL (0.2-1.3); BLOOD UREA NITROGEN 12 mg/dL (7-20); CALCIUM 10.2 mg/dL (8.4-10.2); CARBON DIOXIDE 28 mmol/L (22-30); CHLORIDE 91 mmol/L (98-107); POTASSIUM 4.7 mmol/L (3.6-5.0); TOTAL PROTEIN 7.4 g/dL (6.3-8.2)
[2019-01-24 20:20] LABS: GLUCOSE 667 mg/dL (75-110)
[2019-01-24] MEDS ORDERED: INSULIN REG, HUMAN 100 UNIT/ML 3 ML VIAL (PYX) SUBCUT ONE (20:56)
[2019-01-24] MEDS ORDERED: NORMAL SALINE 1000 ML 1,000 ML IV ONE (20:56)
[2019-01-24] MEDS ORDERED: METFORMIN HCL 500 MG TABLET PO ONE (21:46)
[2019-01-24 23:29] VITALS: BP 116/71
== END 2019-01-24 23:29 | disposition home or self-care (01) ==
LOC: ER 17:22
DX: Z48.01 Encounter for change or removal of surgical wound dressing (principal); L02.31 Cutaneous abscess of buttock; E11.65 Type 2 diabetes mellitus with hyperglycemia
CPT/HCPCS: 36415; 82962; 80053; J1815; J7030